=== PATIENT | male | born 1940 ===

== ENCOUNTER 2019-02-15 07:12 | Day surgery (SDC) | payer MEDICARE, OTHER ==
[~2019-02-15 07:12] MED LIST: BUPIVACAINE/PF 0.5% ONE; HEPARIN 1,000 UNITS/ML, 10ML ONE; PROTAMINE SULFATE 10 MG/ML, 5ML ONE; THROMBIN 5,000 UNIT VIAL TP ONE
== END 2019-02-15 08:00 | disposition home or self-care (01) ==
LOC: OUT 07:12
PROVIDERS: ATTEND Surgery Vascular Surgery
DX: Z02.9 Encounter for administrative examinations, unspecified (principal)
CPT/HCPCS: J1644; J2720